=== PATIENT | female | born 1960 | race Caucasian/White ===

== ENCOUNTER 2018-08-21 08:52 | Outpatient (CLI) | payer BC ==
[2018-08-21 09:26] LABS: Hemoglobin 15.3 g/dL (12.0-16.0); Mean Corpuscular HGB CONC 32.9 g/dL (32.0-36.0); Mean Corpuscular Hemoglobin 30.4 pg (27.0-31.0); Mean Corpuscular Volume 92.6 fL (78.0-98.0); Mean Platelet Volume 7.8 fL (7.4-10.4); Platelet Count 335 thou/uL (130-400); RBC Distribution Width 11.4 % (11.5-14.5); Red Blood Cell (RBC) Count 5.03 mill/uL (4.20-5.40); White Blood Cell (WBC) Count 9.2 thou/uL (4.8-10.8)
== END 2018-08-21 08:53 | disposition home or self-care (01) ==
LOC: LABBT 08:52
PROVIDERS: ATTEND Orthopaedic Surgery
DX: Z01.812 Encounter for preprocedural laboratory examination (principal); G56.01 Carpal tunnel syndrome, right upper limb
CPT/HCPCS: 85027

== ENCOUNTER 2018-08-23 08:41 | Day surgery (SDC) | payer BC ==
[2018-08-21 08:57] VITALS: BMI 23.3
[2018-08-23] MEDS ORDERED: Fentanyl 100 MCG/2 ML VIAL ONE (11:53)
[2018-08-23] MEDS ORDERED: Lidocaine 1% w/Epinephrine 1:200K 30 ML VIAL ONE (11:54)
[2018-08-23] MEDS ORDERED: CEFAZOLIN 2 GM/50 ML BAG ONE (12:01)
--- NOTE | 2018-08-23 12:54 | OP ---
DATE OF PROCEDURE: 08/23/2008 PREOPERATIVE DIAGNOSIS: Right carpal tunnel syndrome. POSTOPERATIVE DIAGNOSIS: Right carpal tunnel syndrome. PROCEDURE PERFORMED: Right open carpal tunnel release. STAFF: Torres Saldana M.D. TUBE BENDER HAND: None. ANESTHESIA: The patient received LMA. ESTIMATED BLOOD LOSS: 10 mL. TOURNIQUET TIME: 6 minutes at 250 mmHg. ANTIBIOTICS: Ancef 2 grams. COMPLICATIONS: None. HISTORY OF PRESENT ILLNESS: Ms. Maloney is a 57-year-old female who presents with history of bi lateral carpal tunnel, right greater than left, for many years. She had previous nerve studies showi ng it. I discussed with the patient the risks and benefits of right carpal release to include pain, scar, bleeding, infection, damage to vital structures, decreased range of motion or strength, continu ed pain despite surgical intervention. The patient understood these risks and benefits and elected t o proceed. PROCEDURE NOTE: Timeout was performed designating the patient's right upper extremity as the operati ve site based on site, consents and markings. After completion of timeout, the patient's right upper extremity was prepped and draped in sterile fashion. Tourniquet was brought up and left up for a to carlita of 6 minutes. Incision made just medial of fourth ray proximal to Patino's cardinal line down th rough skin to the flexure crease down through skin and down through the palmar fascia, then through t he palmaris brevis down to the transverse carpal ligament. The nerve was exposed. I ensured it was released completely proximally, so there is no other further tails, let the tourniquet down after 6 m inutes, controlled bleeding, placed a 4-0 nylon stitches to close the incision. I injected 7 mL of 1 % lidocaine with epinephrine into the incision line. I placed a soft tissues dressing. She is to fo llow up in 10-14 days.
--- NOTE | 2018-08-24 08:09 | HP ---
DATE OF ADMISSION: 08/23/2018 HISTORY OF PRESENT ILLNESS: Ms. Maloney is a 57-year-old female who presented to me with bilateral carpal tunnel symptoms, history of several years of burning and numbness in her hands. The patient had previous nerve conduction studies by Dr. Beltre confirming carpal tunnel. The patient had night pain. Pain rated 5/10. PAST MEDICAL HISTORY: Hearing loss, ear infection, hyperlipidemia. PAST SURGICAL HISTORY: Rib resection, hysterectomy, foot neuroma. MEDICATIONS: None. ALLERGIES: No known drug allergies. SOCIAL HISTORY: Nonsmoker, occasional alcohol. PHYSICAL EXAMINATION: GENERAL: Alert and oriented female, in no acute distress, resting comfortably in bed. NEUROLOGIC: The patient has no tenderness. Normal strength. The patient has positive Phalen's, carpal tunnel test, decreased median nerve distribution. Brisk cap refill. The patient has otherwise normal strength. ASSESSMENT: Carpal tunnel syndrome, bilateral. PLAN: The patient will be taken back for an open right carpal tunnel release. I discussed the risks and benefits of surgery, pain, scar, bleeding, infection, damage to vital structures, decreased range of motion or strength, continued pain despite surgical intervention, loss of life or limb. The patient understood the risk and benefits and elected to proceed. [id number]
== END 2018-08-23 13:38 | disposition home or self-care (01) ==
LOC: SDC 08:41
PROVIDERS: ATTEND Orthopaedic Surgery
PROC: 01N50ZZ Release Median Nerve, Open Approach (ICD-10-PCS; principal; 2018-08-23)
DX: G56.03 Carpal tunnel syndrome, bilateral upper limbs (principal); E78.5 Hyperlipidemia, unspecified; Z79.899 Other long term (current) drug therapy
CPT/HCPCS: J3010

== ENCOUNTER 2019-04-17 15:25 | Outpatient (CLI) | payer BC ==
--- NOTE | 2019-04-17 16:26 | RAD ---
CERVICAL SPINE: 04/17/19 Six views. HISTORY: Cervicalgia. Cervical vertebrae maintain normal height. There are mild to moderate degenerative changes. Mild disc narrowing at C5-6. Mild anterior osteophytes and posterior spondylosis most prominent at C4-5 and C5 -6 levels. Foramina appear patent. Uncinate hypertrophy does encroach into the foramina bilaterally a t C5-6. IMPRESSION: Degenerative changes most prominent at C5-6. POS: OFF
--- NOTE | 2019-04-17 16:39 | RAD ---
TWO VIEWS OF THE CHEST: 04/17/19 COMPARISON: None. HISTORY: 30 year history of smoking. FINDINGS: There are increased linear interstitial densities noted bilaterally. There is mild pulmonary hyperinf lation suggesting air trapping. No pneumothorax or pleural fluid. No focal consolidation or alveolar edema. There is atherosclerotic calcification of the aortic arch. IMPRESSION: Mild pulmonary hyperinflation with diffuse increased linear interstitial density. No acute findings. POS: H
== END 2019-04-17 15:26 | disposition home or self-care (01) ==
LOC: BICRAD 15:25
PROVIDERS: ATTEND Family Medicine
DX: M54.2 Cervicalgia (principal); F17.200 Nicotine dependence, unspecified, uncomplicated; M47.812 Spondylosis without myelopathy or radiculopathy, cervical region; J98.4 Other disorders of lung
CPT/HCPCS: 71046; 72050

== ENCOUNTER 2021-08-19 13:36 | Outpatient (CLI) | payer BC | END 2021-08-19 13:37 | disposition home or self-care (01) | LOC: BICCT 13:36 | PROVIDERS: ATTEND Thoracic Surgery (Cardiothoracic Vascular Surgery) | DX: I65.23 Occlusion and stenosis of bilateral carotid arteries (principal) | CPT/HCPCS: 70498 ==